=== PATIENT | female | born 1950 | race Caucasian/White ===

== ENCOUNTER → 2016-10-01 | Outpatient (CLI) | payer OTHER ==
[~2016-10-01] MED LIST: CHOL200010 PO; CHOL4POW4 PO; CYAN100048 SL; DIPH25CA37 PO; LISI2.5T5 PO; LOPE1TAB25 PO; METF1000 PO; METO25TA56 PO; METO50TA16 PO; NXM/40 PO; SIMV80TA5 PO; VENL150C PO
--- NOTE | 2016-10-05 12:18 | CODING QUERY MEDICAL NECESSITY ---
SUPPORTING DIAGNOSIS NEEDED A supporting diagnosis is required for the test/procedure performed on this patient in order for us to be reimbursed by the patient's insurance. Please provide a supporting diagnosis for the following test/procedure listed below next to the test name along with your signature. *If there is no additional diagnosis for this patient that would support the following test/procedure please document that below next to the test/procedure. Test(s)/Procedure(s) that require a supporting diagnosis: DOS 10/01 * Vitamin D DIAGNOSIS: Provider Signature: Date: Thank you Marilyn Zaidi [facility] Information Management Once completed, please kindly fax back to [phone] For questions please call [phone]
== END | disposition home or self-care (01) ==
LOC: C.LAB1850 14:12
PROVIDERS: ATTEND Nurse Practitioner Adult Health
DX: E11.8 Type 2 diabetes mellitus with unspecified complications (principal); K76.0 Fatty (change of) liver, not elsewhere classified; R53.83 Other fatigue; E55.9 Vitamin D deficiency, unspecified